=== PATIENT | female | born 1975 | race Caucasian/White ===

== ENCOUNTER → 2018-02-15 17:56 | Outpatient (CLI) | payer BC, SELFPAY ==
[2018-02-15 17:57] LABS: Mucous, Urine 0 SEEN /hpf (<or=2+); Squamous Epithelial Cells - UA 0 SEEN /hpf (5-10)
[2018-02-15 18:12] LABS: Color, Urine Yellow (Yellow); Glucose, Dipstick Normal (Normal); Ketone-Dipstick Negative (Negative); Leukocyte Esterase-Dipstick 500 /ul (Negative); Nitrite-Dipstick Positive (Negative); Occult Blood-Urine 50 /ul (Negative); Protein-Dipstick 15 mg/dl (Negative); Specific Gravity, Urine 1.005 (1.002-1.030); Urine Clarity Sl. Cloudy (Clear); Urine Urobilinogen 4 mg/dl (Normal)
[2018-02-15 18:24] LABS: Urine Bilirubin Dipstick 3 mg/dL (Negative)
[2018-02-15 18:31] LABS: Bacteria 1+ /hpf (None Seen); Red Blood Cells-Urine 0-5 SEEN /hpf (0-5); White Blood Cells 5-10 SEEN /hpf (0-5)
== END ==
PROVIDERS: Family Provider Family Medicine; PCP Family Medicine; Visit Provider Physician Assistant Surgical
DX: R30.0 Dysuria (principal)
CPT/HCPCS: 81001; 87077; 87086; 87088; 87186

== ENCOUNTER → 2018-08-22 08:13 | Outpatient (CLI) | payer BC, SELFPAY ==
[2018-08-22 08:08] VITALS: BMI 25.9
--- NOTE | 2018-08-22 08:17 | RAD_ITS ---
STUDY: X-RAY - LEFT FOOT CLINICAL: Pain in the area of the fourth and fifth metatarsophalangeal joints, injury last night. TECHNIQUE: 3 view(s) of the foot. COMPARISON: None. FINDINGS: There is a small posterior calcaneal enthesophyte. There is a bipartite os peroneum. Normal visualized subtalar, talonavicular, calcaneocuboid, tarsal and tarsometatarsal articulations. Normal metatarsi. Normal metatarsophalangeal joint of the great toe. Normal tibial and fibular sesamoid bones. Normal interphalangeal joint of the great toe. Normal phalanges of the great toe. Normal second through fifth metatarsophalangeal joints. There is a nondisplaced fracture of the base of the fifth proximal phalanx. The soft tissue structures are unremarkable. RAD/Foot min 3 Views IMPRESSION: Fracture of the base of the fifth proximal phalanx. Electronically Signed: Len Pinedo MD at 9:00 EST Tel , Service support ,
--- OUTSIDE RECORDS SUMMARY | 2018-10-26 21:04 | XMS RPT_ITS ---
:1975 Author Organization OHIP Care Team Providers Name Role Phone Gautam Talamantes Attending Unavailable Malys, Ilana Referring Unavailable Gautam Talamantes Attending Unavailable Gautam Talamantes Referring Unavailable Malys, Ilana Primary Care Unavailable Rashawn Rogers Attending Unavailable Malys, Ilana Referring Unavailable Malys, Ilana Primary Care Unavailable Rashawn Rogers Attending Unavailable Malys, Ilana Primary Care Unavailable Rashawn Rogers Referring Unavailable Chirag Ibarra Attending Unavailable Malys, Ilana Referring Unavailable PROBLEMS PROBLEMS DATE TYPE CONDITION / CODE ATTENDING STATUS SOURCE 08/22/2018 Unknown S99.922A - Gautam Talamantes Active [place] Unspecified Community injury of left Hospital foot, initial Repository encounter / S99.922A(ICD-10) 02/16/2018 Unknown R30.0 - Dysuria / Rashawn Rogers Active [place] R30.0(ICD-10) [facility] Repository 02/15/2018 Unknown N39.0 - Urinary KenRashawn Active [place] tract infection, Community site not Hospital specified / Repository N39.0(ICD-10) PROCEDURES PROCEDURES No Procedure Records FoundRESULTS RESULTS ORTHOPEDIC VISIT Observed: 08/28/2018 Status: F Source: [place] REPORT 12:10 PM [facility] REPOSITORY [facility] [address] [place] [address] [address] [place] [address] OFFICE VISIT Date of Service: 08/28/18 MR#: [id number] Acct: [id number] Name: DOROTHY BATES Rep #: [id number] : 1975 Provider: DEVAN Ibarra Age/Sex: 43/F [place] [facility] [place]: [place] Intake Vital Signs08/28/18 Body Mass Index (BMI) 25.9 Intake Visit Reasons: LEFT FOOT Is patient in pain?: Yes Pain scale (1-10): 1 Allergies No Known Allergies Allergy (Unverified 08/22/18 08:09) Medications NK 08/22/18 [History Confirmed 08/22/18] PFSH Social History Smoking Status: Never smoker alcohol intake: never HPI LEFT FOOT: Details: DOROTHY BATES is a 43 year old F here today for [facility]u from [facility], she was in the garage at home when she tripped over [place] and her foot went into the pile of wood. She presents in a hard soled shoe with discoloration at the fifth mtp, mild swelling but she does not have much pain. Denies numbness, tingling or other associated symptoms. She was icing but no longer needs it. Ortho Exam Left Ankle Skin: Yes Ecchymosis (Base of the fifth toe); no Soft Tissue Swelling or Erythema Exam: Yes Ecchymosis (Base of the fifth toe); no Soft tissue swelling, Erythema or TTP Lateral Malleolus Compartments: soft ROM: No pain with ROM ANKLE: Today in the office patient has no abnormalities on inspection of the ankle. She does have some minor swelling with some associated ecchymosis of the base of the fifth toe. Patient also has some minor associated tenderness on the dorsal surface of the fifth proximal phalanx. Patient does have intact flexion and extension of the toe joints. Patient has no tenderness on palpation of the base of the fifth metatarsal. She has no tenderness in the ankle. She has full range of motion of the ankle without pains or discomfort. Patient has normal sensation throughout the extremity. Assessment AND Plan Problems 1. Fracture of proximal phalanx of toe of left foot S92.912A Plan At this time we did discuss patient's x-ray results as well as the anatomy of the foot. X-rays show that she has a small nondisplaced fracture at the base of the proximal phalanx. In the office she has some minor swelling and ecchymosis with minor tenderness on palpation. Movements are intact of the toe joints. At this time patient is in a postop shoe and should continue with the postop shoe for the next 3 weeks. I would see that in 1-2 weeks she can take the shoe off at night and just continue to work with range of motion of the toes as well as she has no tenderness. I like to recheck her in 3 weeks which will be 4 weeks from her injury and will get x-rays at that time. Patient can return to the office sooner if she has any new injuries, increased swelling, increasing pain or any other signs or symptoms. Patient can continue to ice and take anti-inflammatories as needed for pain however she states she is really not had much pain and has not needed to take anything. All of patient's questions were answered at this time. This note was generated with [employer] software. It may contain incorrect words, spelling, and punctuation that were not noted in checking the note before signing. This note was generated with [employer] software. It may contain incorrect words, spelling, and punctuation that were not noted in checking the note before signing. Coding Level of Care Code Off vis,est,level 3 Diagnoses Fracture of proximal phalanx of toe of left foot S92.912A 08/28/18 1210 <Electronically signed by Chirag HARTMAN> Date Chirag HARTMAN Cosigner Signature: Date (if applicable) CC: URGENT CARE VISIT Observed: 08/22/2018 Status: F Source: DAVID REPORT 10:29 AM [facility] REPOSITORY [facility] [address] [place] [address] [address] [place] [address] OFFICE VISIT Date of Service: 08/22/18 MR#: [id number] Acct: [id number] Name: DOROTHY BATES Rep #: [id number] : 1975 Provider: Gautam HARTMAN Age/Sex: 43/F Location[place] [facility] Status: Signed Intake Vital Signs08/22/18 Height 5 ft 5 in 08/22/18 Weight: 156 lb 08/22/18 Body Mass Index (BMI) 25.9 08/22/18 Blood Pressure 124/72 H 08/22/18 Respiratory Rate 14 Intake Visit Reasons: LEFT FOOT PAIN Chief Complaint: Left foot injury Pony Rougher Required: No Accompanied by: self Is patient in pain?: Yes Allergies No Known Allergies Allergy (Unverified 08/22/18 08:09) Medications NK 08/22/18 [History Confirmed 08/22/18] PFSH Social History Smoking Status: Never smoker alcohol intake: never HPI HPI Chief Complaint: Left foot injury Details: DOROTHY BATES, is a 43 F who presents to the office today for initial evaluation left foot injury occurring last evening. Patient states while at home accidentally kicking a kitchen cabinet while reaching for some food. Pain agravated to touch and with weight bearing, alleviated w/ rest. No other c/o at this time. ROS Const Constitutional: Positive for other (ROS negative x10 other than as noted above) Exam Const General: cooperative, healthy appearing, no acute distress, uncomfortable Nutritional Appearance: average body habitus Orientation: alert, awake, oriented x3 Musc Musculoskeletal: No joint tenderness, joint redness, joint warmth or decreased ROM Skin General: no rashes or lesions noted Neuro General: alert, awake, oriented x3, gait normal Cognition: normal cognition Speech: speech normal Gait: normal gait Motor: muscle tone normal throughout Sensory Exam: no sensory deficits noted Extrem General: normal to inspection, normal capillary refill, no joint enlargement, normal exam except as noted (L 5th MTP point tenderness; XRAY = 5th MTP fracture) Psych Appearance: grossly normal Mental Status: mental status grossly normal Mood: congruent mood Affect: normal affect Speech and Movement: speech and movement normal Attitude: cooperative Thought Process: normal Thought Content: normal Judgment: judgment good Assessment AND Plan Problems 1. Nondisplaced fracture of fifth left metatarsal bone S92.355A Plan Post-op show as dispensed/ instructed today. Radiologist interpretation of radiographs given to patient over the phone after her discharge from the [facility] clinic today; patient stated acknowledging understanding significance of findings. Rest, ice, Advil/ Tylenol as instructed today. F/u w/ ortho or podiatry 1st available. Patient states acknowledging understanding all the above. Orders Orders: Coding Level of Care Code Off vis,new,level 4 Diagnoses Nondisplaced fracture of fifth left metatarsal bone S92.355A 08/22/18 1029 <Electronically signed by Gautam HARTMAN> Date Gautam HARTMAN Cosigner Signature: Date (if applicable) CC: FOOT MIN 3 VIEWS Observed: 08/22/2018 Status: F Source: ALL[place] 8:17 AM [facility] REPOSITORY [facility] Imaging Services [address] [place] [address] Foot min 3 Views MR#: [id number] Acct: [id number] Name: DOROTHY BATES Rep #: [id number] : 1975 F 43 From: Len Pinedo MD PCP: Ilana Nguyễn DO Status: REG CLI Study: Foot min 3 Views Date of Exam: 08/22/18 Exam# [id number] Ordering Dr: Gautam Talamantes STUDY: X-RAY - LEFT FOOT CLINICAL: Pain in the area of the fourth and fifth metatarsophalangeal joints, injury last night. TECHNIQUE: 3 view(s) of the foot. COMPARISON: None. FINDINGS: There is a small posterior calcaneal enthesophyte. There is a bipartite os peroneum. Normal visualized subtalar, talonavicular, calcaneocuboid, tarsal and tarsometatarsal articulations. Normal metatarsi. Normal metatarsophalangeal joint of the great toe. Normal tibial and fibular sesamoid bones. Normal interphalangeal joint of the great toe. Normal phalanges of the great toe. Normal second through fifth metatarsophalangeal joints. There is a nondisplaced fracture of the base of the fifth proximal phalanx. The soft tissue structures are unremarkable. RAD/Foot min 3 Views IMPRESSION: Fracture of the base of the fifth proximal phalanx. Electronically Signed: Len Pinedo MD at 9:00 EST Tel , Service support , CC: Ilana Nguyễn DO; Gautam HARTMAN Check Totaler: Signed URGENT CARE VISIT Observed: 02/15/2018 Status: F Source: [place] REPORT 12:38 PM [facility] [place] [place] [address] OFFICE VISIT Date of Service: 02/15/18 MR#: [id number] Acct: [id number] Name: DOROTHY BATES Rep #: [id number] : 1975 Provider: Rashawn HARTMAN Age/Sex: 42/F Location: [facility] Status: Signed Intake Vital Signs02/15/18 Height 5 ft 5 in Intake Visit Reasons: Urinary tract infection Medications nitrofurantoin monohydrate/macrocrystals 100 mg capsule 1 cap PO Q12H 7 Days #14 cap 02/15/18 [Rx Confirmed 02/15/18] HPI HPI Details: DOROTHY BATES, is a 42 F who presents to the office today for concern for UTI. Patient states that she has had pelvic pressure for the past 4-5 days then over the past 24 hours has noticed dysuria, increased urinary frequency, hematuria and urgency. Patient states that she has taken Pyridium which did help with the dysuria. Patient denies any current pelvic, abdominal or back pain. She has had no fever, chills, sweats. No nausea, vomiting, diarrhea. No other associated symptoms or alleviating/aggravating factors. ROS Const Constitutional: No body ache, chills or fever(s) Resp Respiratory: No shortness of breath Cardio Cardiology: No lightheadedness, palpitations or irregular heart rhythm Gastro GI: No abdominal pain Genitourinary-Female: Positive for burning urination, painful urination, urinary frequency and blood in urine; no pelvic pain or painful intercourse Neuro Neurology: No confusion or behavioral changes Psych Psychiatric: No confusion, No behavioral changes Exam Const General: cooperative, healthy appearing Resp Effort AND Inspection: normal respiratory effort Auscultation: Bilateral: Clear to Auscultation Cardio Rate: regular rate Rhythm: regular rhythm GI Auscultation: normal bowel sounds General: No CVA tenderness Psych Appearance: grossly normal Mental Status: mental status grossly normal Assessment AND Plan 1. Acute cystitis with hematuria N30.01 Status Acute Plan Macrobid as prescribed today. Encouraged to get plenty of rest, drink lots of clear liquids, and use Tylenol or Ibuprofen (unless contraindicated) for fever and comfort. Patient also educated on other symptomatic management techniques. To be seen in 7-10 days if no improvement; sooner if worsening of symptoms. Patient advised of potential red flags and when appropriate report to the ED. Patient verbalized understanding of all the above. This note was generated with [employer] dictation software. It may contain incorrect words, spelling, and punctuation that were not noted in checking the note before signing. Plan Detail Other Orders Orders: Other Medications New: nitrofurantoin monohyd/m-cryst 100 mg administer with a meal1 cap PO Q12H 7 days N39.0 /food; swallow whole; do not open, crush, dissolve , or chew Coding Level of Care Code Off vis,new,level 3 Diagnoses Acute cystitis with hematuria N30.01 Urinary tract infection type: acute cystitis Hematuria presence: with hematuria 02/15/18 1238 <Electronically signed by Rashawn HARTMAN> Date Rashawn HARTMAN Cosigner Signature: Date (if applicable) CC: URINALYSIS, COMPLETE Collected: 02/15/2018 Status: F Source: DAVID 11:30 AM [facility] REPOSITORY Order Comment: How was Urine Obtained? CLEAN CATCH TYPE CODE TESTS RESULT OUT OF RANGE REFERENCE UNITS LAB L400.3000 Yellow COLOR Normal Yellow LAB L400.3050 Clear Normal CLARITY Sl. Cloudy LAB L400.3200 Normal mg/dl Normal GLUCOSE, UR Normal LAB L400.3300 Negative mg/dL High BILIRUBIN URINE 3 Result Comment: COLOR OF URINE MAY AFFECT DIPSTICK RESULTS. LAB L400.3400 Negative mg/dl Normal KETONE UR Negative LAB L400.3465 1.002-1.030 Normal SP.GR. DIPSTX 1.005 LAB L400.3550 5.0 - 8.0 pH Normal UR 7.0 LAB L400.3600 Negative mg/dl High PROT DIPSTX 15 LAB L400.3700 Normal mg/dl High UROBILI 4 LAB L400.3750 Negative High NITRITE UR Positive LAB L400.3780 Negative /ul High OCCULT 50 BLOOD-UR LAB L400.3800 Negative /ul High LEUK ESTERASE 500 LAB L400.4050 0-5 /hpf Normal WBC 5-10 SEEN LAB L400.4100 0-5 /hpf Normal RBC-UA 0-5 SEEN LAB L400.4150 5-10 /hpf Normal SQUAM EPI 0 SEEN LAB L400.4300 None Seen /hpf Normal BACTERIA 1+ LAB L400.4350 <or=2+ /hpf Normal MUCUS, URINE 0 SEEN Performed By: #### L400.0001 #### [facility] [address] [place], [address] Observed: 02/15/2018 Status: F Source: DAVID CULTURE, URINE 11:30 AM [facility] REPOSITORY Urine Culture ORGANISM 1: Presumptive E. coli [place] Count 11,000-25,000 Presumptive E. coli: REACTION Amoxacillin/Clavulanic Acid $ 4 S Ampicillin $ 16 R Ampicillin/Sulbactam $ 4 S Cefazolin $ <=4 S Cefepime $ <=1 S Ceftriaxone $ <=1 S Ciprofloxacin $ <=0.25 S ESBL - Ertapenim $$$ <=0.5 S Gentamicin $ <=1 S Imipenem *NF <=0.25 S Levofloxacin $ <=0.12 S Nitrofurantoin $ <=16 S Piperacillin/Tazobactam $$ <=4 S Tobramycin $ <=1 S Trimethoprim/Sulfametho $ <=20 S (NF) indicates non-formulary drug at [facility]. Approval by Infectious Disease Specialist required before non-formulary drugs may be ordered and/or dispensed. Performed By: #### M100.0650 #### [facility] [place], [address] ALLERGIES ALLERGIES DATE TYPE / CODE NAME / CODE REACTION SEVERITY SOURCE 08/22/2018 Drug No Known Unknown [facility] Allergy/4160 Allergies/F00 Hospital 52003(SNOMED 5147092(RXNOR Repository CT) M) ENCOUNTERS ENCOUNTERS ADMIT/DISCHARGE ACCOUNT ADMITTING ENCOUNTER LOCATION SOURCE NUMBER CLASS 08/28/2018/ [id number] Ambulatory BMSBuilding:B David 9 0 MS.SMO [facility] Repository 08/22/2018 [id number] Ambulatory [place] 2 [facility] ing:HPRAD Repository 08/22/2018/ [id number] Ambulatory BMSBuilding:B [place] 9 4 [place].NOW [facility] Repository 02/15/2018 [id number] Ambulatory [place] 7 [facility] ing:LABSPEC Repository 02/15/2018/ [id number] Ambulatory BMSBuilding:B [place] 8 5 MS.[facility] Repository PAYERS PAYERS ENCOUNTER GUARANTOR PAYER SUBSCRIBER SOURCE 08/28/2018 DOROTHY MCMAHON3 Chapito Hernandez [facility] Stewart[place]: [place] Number: [id number] [address]Usy: (330) [id number] Repository [phone] () Date:7743-00-75[address] [place] [address]DE: 08/28/2018 Secondary NOT GIVENUNK [place] Insurance:SELF PAY [facility] Number: Effective Repository Date:2018-08-27 08/22/2018 DOROTHY BATES543 Primary Anahi D [place] Insurance:ANTHEMPolic StewartDOB: [facility] [place] Number: [id number] [id number]: [phone]) [id number] Repository [phone] () Date:2529-72-25QS [address] [place] [address] [place] [address]HZ: 08/22/2018 Secondary NOT GIVENUNK [place] Insurance:SELF PAY [facility] Number: Effective Repository Date:2018-08-22 08/22/2018 DOROTHY MCMAHON3 Primary Anahi D David [place] Insurance:ANTHEMPolic StewartDOB: [facility] [place] Number: [id number] [address]Zaq: [phone]) [id number] Repository [phone] () Date:8528-94-99HO [address] [place] [address] [place] [address]LV: 08/22/2018 Secondary NOT GIVENUNK David Insurance:SELF PAY [facility] Number: Effective Repository Date:2018-08-22 02/15/2018 DOROTHY SALDIVAR Primary Anahi D David [place] Insurance:ANTHEMPolic StewartDOB: [facility] [place] Number: [id number] [address]Rks: (330) [id number] Repository [phone] () Date:2087-00-24MZ [address] [address]YU: 02/15/2018 Secondary NOT GIVENUNK David Insurance:SELF PAY [facility] Number: Effective Repository Date:2018-02-15 02/15/2018 DOROTHY SALDIVAR Primary Anahi Hernandez [facility] Insurance:ANTHEMPolic StewartDOB: [place] Number: [id number] [id number]: [phone]) [id number] Repository [phone] () Date:9621-57-10TQ [address], [place] [address]NR: 02/15/2018 Secondary NOT GIVENROSAS Hernandez Insurance:SELF PAY [facility] Number: Effective Repository Date:2018-02-15
== END ==
PROVIDERS: Family Provider Family Medicine; PCP Family Medicine; Referring Provider Physician Assistant; Visit Provider Physician Assistant
DX: S99.922A Unspecified injury of left foot, initial encounter (principal)
CPT/HCPCS: 73630

== ENCOUNTER → 2020-09-13 11:15 | Outpatient (CLI) | payer BC, SELFPAY ==
[2020-07-27 09:52] VITALS: BMI 28.3
[2020-09-13 12:33] LABS: Absolute Lymphocyte Count 1.99 X10^3/uL (0.83-4.51); Absolute Neutrophil Count 5.2 X10^3/uL (2.0-7.7); Basophil# 0.04 X10^3/uL; Basophil% 0.5 % (0-1); Eosinophils% 2.5 % (0-5); Hematocrit 45.8 % (37-47); Hemoglobin 14.7 g/dL (12.0-15.0); Lymphocyte # 1.99 X10^3/ul (4.0); Lymphocyte % 24.7 % (19-41); Mean Corp Hgb Conc 32.1 g/dL (32-36); Mean Corpuscular Hgb 29.9 pg (27.0-32.0); Mean Corpuscular Volume 93.3 fL (81-99); Mean Platelet Vol. 9.5 fl (6.2-12.0); Monocyte# 0.59 X10^3/uL; Monocyte% 7.3 % (0-10); NRBC Flagged by Analyzer 0 % (0-5); Neutrophil # 5.22 X10^3/uL (2.7-7.7); Neutrophil % 64.8 % (47-70); Platelet Count 275 K/mm3 (150-450); RBC Distribution Width CV 12.8 % (11.6-14.6); RBC Distribution Width SD 43.8 fl (35.1-43.9); Red Blood Count 4.91 M/mm3 (4.2-5.4); White Blood Count 8.1 K/mm3 (4.4-11.0)
[2020-09-13 13:11] LABS: ALB/GLOB Ratio 1.2 RATIO (0.9-2.4); AST(SGOT) 17 U/L (15-37); Alanine Aminotransfer ALT/SGPT 18 U/L (13-56); Albumin, Serum 4.1 g/dL (3.2-5.0); Alkaline Phosphatase 58 U/L (45-117); Anion Gap 3 (5-15); BUN 15 mg/dL (7-18); BUN/Creat Ratio 16.4 RATIO (10-20); Calcium,Total 9.5 mg/dL (8.5-10.1); Chloride 107 mmol/L (98-107); Creatinine, Serum 0.92 mg/dL (0.55-1.02); EST Glomerular Filtration Rate 70 mL/min (>60); Est Glom Filt Rate - Afr Amer 85 mL/min (>60); Free T3 2.5 pg/mL (2.18-3.98); Globulin 3.4 g/dL (2.2-4.2); Glucose 82 mg/dL (74-106); Magnesium 2.2 mg/dL (1.6-2.6); Potassium 3.9 mmol/L (3.5-5.1); Protein, Total 7.5 g/dL (6.4-8.2); Sodium Level 139 mmol/L (136-145); T4 Free Direct 1.01 ng/dL (0.76-1.46); Thyroid Stim Hormone (TSH) 1.74 uIU/mL (0.358-3.74)
== END ==
PROVIDERS: PCP Family Medicine; Visit Provider Family Medicine
DX: R00.2 Palpitations (principal); R53.83 Other fatigue; Z51.81 Encounter for therapeutic drug level monitoring
CPT/HCPCS: 36415; 80053; 83735; 84439; 84443; 84481; 85025

== ENCOUNTER → 2020-09-27 14:53 | Outpatient (CLI) | payer BC, SELFPAY ==
[2020-07-27 09:52] VITALS: BMI 28.3
--- NOTE | 2020-09-27 14:59 | ECHOD_ITS ---
Reason For Study: HEART MURMUR Procedure This was a 2D Doppler, Color Flow transthoracic echocardiogram. Exam performed in department. Left Ventricle Normal LV size. Left ventricular systolic function is normal. The estimated ejection fraction is 65 %. Normal diastology for age. No regional wall motion abnormalities noted. Right Ventricle Normal RV size. Normal systolic function. Atria Normal left atrium. Normal right atrium. Mitral Valve Normal mitral valve. Tricuspid Valve Normal tricuspid valve. Mild (1+) tricuspid valve insufficiency. Pulmonary artery systolic pressure is 30 mmHg. Aortic Valve Normal aortic valve. Trisinus/trileaflet aortic valve. Pulmonic Valve Normal pulmonic valve. Great Vessels Normal aortic root. The pulmonary artery is normal size. Normal inferior vena cava. Pericardium/Pleural No pericardial effusion. MMode/2D Measurements & Calculations LVIDd: 4.3 cm IVSd: 0.77 cm Ao root diam: 2.5 cm LVIDs: 2.9 cm LVPWd: 0.77 cm RVDd: 3.2 cm FS: 31.9 % LAV(MOD-bp): 31.4 ml LVAd ap4: 21.0 cm2 SV(MOD-sp4): 28.2 ml LAV(MOD-bp) Indexed: 17.3 ml/m2 EDV(MOD-sp4): 51.8 ml LAV(MOD-sp2): 30.2 ml EDV(sp4-el): 53.2 ml LAV(MOD-sp4): 31.2 ml LVAs ap4: 12.4 cm2 ESV(MOD-sp4): 23.6 ml ESV(sp4-el): 23.9 ml EF(MOD-sp4): 54.4 % EF(sp4-el): 55.0 % SV(sp4-el): 29.3 ml LA A4 area: 13.3 cm2 LA dimension(2D): 3.4 cm RA A4 area: 11.7 cm2 Time Measurements MV dec time: 0.16 sec Doppler Measurements & Calculations MV E max benny: 100.9 cm/sec Lat Peak E' Benny: 17.2 cm/sec Med Peak E' Benyn: 13.7 cm/sec MV A max benny: 65.9 cm/sec E/E' lat: 5.9 E/E' med: 7.4 MV E/A: 1.5 Ao V2 max: 121.6 cm/sec LV V1 max: 100.7 cm/sec PA V2 max: 92.2 cm/sec Ao max P.9 mmHg LV V1 max P.1 mmHg TR max benny: 251.5 cm/sec TR max P.3 mmHg Interpretation Summary Normal LV size. Left ventricular systolic function is normal. The estimated ejection fraction is 65 %. Pulmonary artery systolic pressure is 30 mmHg. Structurally normal valves. Ordering Physician: Ilana Nguyễn Referring Physician: Ilana Nguyễn Performed By: Vaishnavi Vera RDCS
== END ==
PROVIDERS: PCP Family Medicine; Referring Provider Family Medicine; Visit Provider Family Medicine
DX: I07.1 Rheumatic tricuspid insufficiency (principal); R00.2 Palpitations; R01.1 Cardiac murmur, unspecified
CPT/HCPCS: 93306

== ENCOUNTER → 2021-04-06 | Outpatient (CLI) | payer BC, SELFPAY | END | disposition home or self-care (01) | LOC: LABSPEC 15:04 | PROVIDERS: PCP Family Medicine; Visit Provider Family Medicine | DX: Z20.828 Contact with and (suspected) exposure to other viral communicable diseases (principal) | CPT/HCPCS: 87635; U0005; U0003 ==

== ENCOUNTER → 2022-04-20 | Outpatient (CLI) | payer BC, SELFPAY ==
[2022-04-20 17:45] LABS: Erythrocyte Sedimentation Rate 4 mm/hr (0-30)
[2022-04-20 17:47] LABS: Absolute Lymphocyte Count 1.97 X10^3/uL (0.83-4.51); Absolute Neutrophil Count 4.7 X10^3/uL (2.0-7.7); Basophil# 0.05 X10^3/uL; Basophil% 0.6 % (0-1); Eosinophil# 0.39 X10^3/uL; Hematocrit 43.4 % (37-47); Lymphocyte # 1.97 X10^3/ul (0.83-4.51); Lymphocyte % 25.1 % (19-41); Mean Corp Hgb Conc 32.3 g/dL (32-36); Mean Corpuscular Hgb 30.1 pg (27.0-32.0); Mean Corpuscular Volume 93.3 fL (81-99); Mean Platelet Vol. 9.2 fl (6.2-12.0); Monocyte# 0.72 X10^3/uL; Monocyte% 9.2 % (0-10); NRBC Flagged by Analyzer 0 % (0-5); Neutrophil # 4.71 X10^3/uL (2.7-7.7); Neutrophil % 59.8 % (47-70); Platelet Count 203 K/mm3 (150-450); RBC Distribution Width CV 12.9 % (11.6-14.6); RBC Distribution Width SD 44.4 fl (35.1-43.9); Red Blood Count 4.65 M/mm3 (4.2-5.4); White Blood Count 7.9 K/mm3 (4.4-11.0)
[2022-04-20 18:03] LABS: Vitamin B12 613 pg/mL (211-911); Vitamin D,25 Hydroxy 19.3 ng/mL
[2022-04-20 18:26] LABS: CRP < 2.90 mg/L (0.0-3.0); Free T3 2.7 pg/mL (2.18-3.98); T4 Free Direct 0.99 ng/dL (0.76-1.46); Thyroid Stim Hormone (TSH) 2.74 uIU/mL (0.358-3.74)
[2022-04-24 22:06] LABS: Thyroid Peroxidase AB 13 IU/mL (0-34)
[2022-04-25 15:14] LABS: Thyroglobulin Antibody < 1.0 IU/mL (0.0-0.9)
== END | disposition home or self-care (01) ==
LOC: MTLAB 16:01
PROVIDERS: PCP Family Medicine; Referring Provider Family Medicine; Visit Provider Family Medicine
DX: E03.9 Hypothyroidism, unspecified (principal); E55.9 Vitamin D deficiency, unspecified; D51.8 Other vitamin B12 deficiency anemias; M25.50 Pain in unspecified joint; R53.83 Other fatigue
CPT/HCPCS: 36415; 82306; 82607; 84439; 84443; 84481; 85025; 85652; 86140; 86376; 86800

== ENCOUNTER → 2023-09-17 | Outpatient (CLI) | payer BC, SELFPAY ==
--- OUTSIDE RECORDS SUMMARY | 2023-09-17 12:14 | XMS RPT_ITS | CCD ---
Author Name Unknown Address [address] [place] [address] Organization [facility] Clinical Note 02-25-2021 Note Date & Type Note Facility 02-25-2021 Note Patient Outreach (IN TMMN) JANADOROTHY Gifford ([id number]) 1975 F Date Time Provider Department 02/25/21 MARCY ESTES During your visit today, we recorded the following information about you: Allergies As of Date: 02/25/2021 Noted Allergy Reaction AUGMENTIN (AMOXICILLIN-POT CLAVUL*09/01/2005 Comments: hives and facial swelling Date Reviewed: 10/29/2015 Reviewed by: Jacob Calero LPN - Fully Assessed Visit Diagnosis:Encounter for screening mammogram for breast cancer [Z12.31] Order(s):[facility] SCREENING [[id number]] Order #: [id number] FUTURE Prescriptions as of 02/28/2021 - atenolol (TENORMIN) 25 mg tablet Take 1 tablet by mouth once daily as needed. - terbinafine HCl (LAMISIL) 250 mg tablet Take 1 tablet by mouth once daily. Problem List As Of Date: 02/25/2021 (None) Encounter Status:Closed by MAKI VELAZQUEZ on 02/28/21 [facility] Summary Purpose Family History No Family History Records Found Advance Directives No Advanced Directives Records Found Additional Source Comments INFORMATION SOURCE (unrecogn ized section and content) FOR RECORDS PERTAINING TO PATIENTS WHO ARE OR HAVE BEEN ENROLLED IN A CHEMICAL DEPENDENCY/SUBSTANCEABUSE PROGRAM, SOME INFORMATION MAY BE OMITTED. This clinical summary was aggregated from multiple sources. Caution should be exercised in using it in the provision of clinical care. This summary normalizes information from multiple sources, and as a consequence, information in this document may materially change the coding, format and clinical context of patient data. In addition, data may be omitted in some cases. CLINICAL DECISIONS SHOULD BE BASED ON THE PRIMARY CLINICAL RECORDS. [facility]. provides no warranty or guarantee of the accuracy or completeness of information in this document.
[2023-09-17 15:30] LABS: Absolute Neutrophil Count 6.3 X10^3/uL (2.0-7.7); Basophil# 0.04 X10^3/uL; Basophil% 0.4 % (0-1); Eosinophils% 2.2 % (0-5); Hematocrit 44.9 % (37-47); Hemoglobin 14.1 g/dL (12.0-15.0); Lymphocyte % 21.6 % (19-41); Mean Corp Hgb Conc 31.4 g/dL (32-36); Mean Corpuscular Hgb 29.7 pg (27.0-32.0); Mean Corpuscular Volume 94.5 fL (81-99); Mean Platelet Vol. 9.7 fl (6.2-12.0); Monocyte# 0.66 X10^3/uL; Monocyte% 7.1 % (0-10); NRBC Flagged by Analyzer 0 % (0-5); Neutrophil # 6.31 X10^3/uL (2.7-7.7); Neutrophil % 68.4 % (47-70); Platelet Count 295 K/mm3 (150-450); RBC Distribution Width SD 45.2 fl (35.1-43.9); Red Blood Count 4.75 M/mm3 (4.2-5.4); White Blood Count 9.2 K/mm3 (4.4-11.0)
[2023-09-17 15:41] LABS: Color, Urine Yellow (Yellow); Glucose, Dipstick Normal (Normal); Ketone-Dipstick Negative (Negative); Leukocyte Esterase-Dipstick Negative /ul (Negative); Nitrite-Dipstick Negative (Negative); Occult Blood-Urine Negative /ul (Negative); Protein-Dipstick Negative (Negative); Urine Bilirubin Dipstick Negative (Negative); Urine Clarity Clear (Clear); Urine Urobilinogen Normal (Normal)
[2023-09-17 15:59] LABS: Erythrocyte Sedimentation Rate 11 mm/hr (0-30)
[2023-09-17 16:03] LABS: ALB/GLOB Ratio 1.1 RATIO (0.9-2.4); AST(SGOT) 17 U/L (15-37); Alanine Aminotransfer ALT/SGPT 19 U/L (13-56); Albumin, Serum 3.9 g/dL (3.2-5.0); Alkaline Phosphatase 61 U/L (45-117); Anion Gap 4 (5-15); BUN 11 mg/dL (7-18); BUN/Creat Ratio 12.3 RATIO (10-20); CRP < 2.90 mg/L (0.0-3.0); Calcium,Total 9.8 mg/dL (8.5-10.1); Chloride 106 mmol/L (98-107); Creatinine, Serum 0.89 mg/dL (0.55-1.02); EST Glomerular Filtration Rate 72 mL/min (>60); Est Glom Filt Rate - Afr Amer 87 mL/min (>60); Free T3 2.6 pg/mL (2.18-3.98); Globulin 3.5 g/dL (2.2-4.2); Glucose 86 mg/dL (74-106); Iron 75 ug/dL (50-170); Protein, Total 7.4 g/dL (6.4-8.2); Sodium Level 139 mmol/L (136-145); T4 Free Direct 0.95 ng/dL (0.76-1.46); Thyroid Stim Hormone (TSH) 2.54 uIU/mL (0.358-3.74)
== END | disposition home or self-care (01) ==
LOC: BFHLAB 11:54
PROVIDERS: PCP Family Medicine; Visit Provider Family Medicine
DX: E03.9 Hypothyroidism, unspecified (principal); M25.50 Pain in unspecified joint; M79.10 Myalgia, unspecified site; R53.83 Other fatigue; Z51.81 Encounter for therapeutic drug level monitoring; R80.9 Proteinuria, unspecified
CPT/HCPCS: 36415; 80050; 80053; 81002; 83540; 84439; 84443; 84481; 85025; 85652; 86140

== ENCOUNTER → 2023-10-01 | Outpatient (CLI) | payer BC, SELFPAY ==
--- NOTE | 2023-10-01 08:31 | BI_ITS ---
MAMMOGRAPHY - BILATERAL SCREENING REASON FOR EXAM: Female, 48 years old. Routine annual screening examination. PERTINENT HISTORY: Non-contributory. TECHNIQUE: Digital bilateral breast marty (3D mammographic acquisition) in the CC and MLO projections. 2-D mediolateral oblique (MLO) and craniocaudad (CC) views of both breasts were obtained. CAD: Full Field Digital Mammography with Computer Added Detection was performed. COMPARISON: Comparison is made with prior study dated February 07, 2017. FINDINGS: Breast Composition: The breasts are extremely dense, which lowers the sensitivity of mammography. There are no dominant masses or suspicious calcifications. No other significant abnormalities are identified. There has been no significant change since the prior study. BI/SCRN MAMM (CAD)W/MARTY BILAT IMPRESSION: Stable bilateral screening mammogram. Yearly follow-up mammogram recommended. (A) ASSESSMENT CATEGORY: BIRADS Category 1: Negative. A letter regarding these results will be sent to the patient by the facility within 30 days. Approximately 10% of breast cancers are not detected by mammography. A normal mammogram should not delay biopsy of a clinically suspicious abnormality. [id number] Electronically Signed: Alexandro Poe MD at 10:51 EST ,
--- OUTSIDE RECORDS SUMMARY | 2023-10-01 08:49 | XMS RPT_ITS | CCD ---
Author Name Unknown Address [address] [place] [address] Organization [facility] Clinical Note 02-25-2021 Note Date & Type Note Facility 02-25-2021 Note Patient Outreach (IN [facility]) JANADOROTHY Gifford ([id number]) 1975 F Date Time Provider Department 02/25/21 MARCY ESTES During your visit today, we recorded the following information about you: Allergies As of Date: 02/25/2021 Noted Allergy Reaction AUGMENTIN (AMOXICILLIN-POT CLAVUL*09/01/2005 Comments: hives and facial swelling Date Reviewed: 10/29/2015 Reviewed by: Jacob Calero LPN - Fully Assessed Visit Diagnosis:Encounter for screening mammogram for breast cancer [Z12.31] Order(s):[facility] SCREENING [[id number]] Order #: [id number] FUTURE Prescriptions as of 02/28/2021 - atenolol (TENORMIN) 25 mg tablet Take 1 tablet by mouth once daily as needed. - terbinafine HCl (LAMISIL) 250 mg tablet Take 1 tablet by mouth once daily. Problem List As Of Date: 02/25/2021 (None) Encounter Status:Closed by MAKI VELAZQUEZ on 02/28/21 [facility] Summary Purpose Family History No Family History [...] BE BASED ON THE PRIMARY CLINICAL RECORDS. [facility] [employer] [facility]. provides no warranty or guarantee of the accuracy or completeness of information in this document.
== END | disposition home or self-care (01) ==
LOC: OPBI 08:30
PROVIDERS: PCP Family Medicine; Referring Provider Family Medicine; Visit Provider Family Medicine
DX: Z12.31 Encounter for screening mammogram for malignant neoplasm of breast (principal)
CPT/HCPCS: 77063; 77067

== ENCOUNTER → 2024-07-14 | Outpatient (CLI) | payer BC, SELFPAY ==
[2024-07-14 18:02] LABS: Estradiol 18.6 pg/mL
[2024-07-14 19:03] LABS: Vitamin D,25 Hydroxy 15.9 ng/mL
[2024-07-16 04:07] LABS: PROGESTERONE 0.8 ng/mL (.)
[2024-07-21 09:22] LABS: DHEA Sulfate 52.2 ug/dL (41.2-243.7); Testosterone, % Free 2.29 % (0.50-2.80); Testosterone, Free 0.07 ng/dL (0.10-0.85); Testosterone, Total 3 ng/dL (4-50); Thyroglobulin Antibody 1.6 IU/mL (0.0-0.9); Thyroid Peroxidase AB < 9 IU/mL (0-34)
== END | disposition home or self-care (01) ==
LOC: BFHLAB 14:39
PROVIDERS: PCP Family Medicine; Visit Provider Family Medicine
DX: N95.1 Menopausal and female climacteric states (principal); N93.8 Other specified abnormal uterine and vaginal bleeding; R53.83 Other fatigue; M25.50 Pain in unspecified joint; E55.9 Vitamin D deficiency, unspecified
CPT/HCPCS: 36415; 82306; 82627; 82670; 84144; 84402; 84403; 84443; 86376; 86800; 82626

== ENCOUNTER → 2025-05-01 | Outpatient (CLI) | payer BC, SELFPAY ==
--- OUTSIDE RECORDS SUMMARY | 2025-05-01 08:46 | XMS RPT_ITS | CCD ---
Author Organization [facility] Care Team Providers Care Hotel Assistant General Manager Name Role Phone Gopi YEH, Dr. Preciado Primary Care Provider Dr. Ilana Nguyễn DO Referring Provider Zeina López Attending Provider Zeina Araujo Attending Unavailable Ilana Nguyễn Referring Unavailable Ilana Nguyễn Primary Care Unavailable Ilana Nguyễn Attending Unavailable Ilana Nguyễn Primary Care Unavailable Allergies Allergy Classification Reported Allergen(s) Allergy Type Date of Onset Reaction(s) Facility (4 sources) Penicillins Allergy to substance 07-27-2020 Unknown [facility] (1 source) Penicillins Drug allergy (disorder) 04-11-2025 [facility] Repository Medications Current Medications Medication Drug Class(es) Dates Sig (Normalized) Sig (Original) ciprofloxacin 500 mg oral tablet (1 source) Quinolone Antimicrobial Start: 04-11-2025 take 1 tablet by mouth twice daily Ciprofloxacin Hcl (Cipro) 500 mg tablet Active 500 mg PO TWICE A DAY 14 7 0 April 11, 2025 12:00am April 17, 2025 12:00am doxycycline monohydrate 100 mg oral capsule (1 source) Tetracycline-class Drug Start: 04-11-2025 take 1 capsule by mouth twice daily Doxycycline Monohydrate 100 mg capsule Active 100 mg PO TWICE A DAY 14 7 0 April 11, 2025 12:00am April 17, 2025 12:00am Completed/Discontinued Medications Medication Drug Class(es) Dates Sig (Normalized) Sig (Original) methylPREDNISolone 4 mg oral tablet (4 sources) Corticosteroid Start: 0 End: 0 take 1 tablet by mouth once Methylprednisolone (Medrol (Iker)) 4 mg tablets,dose pack Discontinued 4 mg PO per package directions 21 5 0 July 27, 2020 1:00am July 31, 2020 1:00am August 01, 2020 1:02am nitrofurantoin, macrocrystals 25 mg / nitrofurantoin, monohydrate 75 mg oral capsule (4 sources) Nitrofuran Antibacterial Start: 8 End: 8 take 1 capsule by mouth every twelve hours at mealtime Nitrofurantoin Monohyd/M-Cryst 100 mg capsule Discontinued 1 NMA PO Q12H 14 7 0 February 15, 2018 12:00am February 21, 2018 12:00am February 22, 2018 12:07am Urinary tract infection, site not specified administer with a meal/food; swallow whole; do not open, crush, dissolve , or chew polymyxin b [id number] unt/ml / trimethoprim 1 mg/ml ophthalmic solution (3 sources) Dihydrofolate Reductase Inhibitor Antibacterial, Polymyxin-class Antibacterial Start: 3 End: 3 Polymyxin B Sulf-Trimethoprim 10,000 unit- 1 mg/mL drops Discontinued 1 - 2 NMA OPHTHALMIC .Q3-6H 10 10 0 September 17, 2022 1:00am September 26, 2022 1:00am September 27, 2022 1:08am while awake; do not exceed 6 doses in 24 hours sulfamethoxazole 800 mg / trimethoprim 160 mg oral tablet (4 sources) Dihydrofolate Reductase Inhibitor Antibacterial, Sulfonamide Antimicrobial Start: 9 End: 9 Sulfamethoxazole-Trim ethoprim (Bactrim Ds) 800-160 mg tablet Discontinued 1 {tbl} PO Q12H 14 7 0 April 29, 2019 12:00am May 05, 2019 12:00am May 06, 2019 12:08am Problems Problem Classification Problem Date Documented Da te Episodic/Chronic Inflammation; infection of eye (except that caused by tuberculosis or sexually transmitteddisease) (3 sources) Conjunctivitis; Translations: [Unspecified conjunctivitis] 09-17-2022 Episodic Menopausal disorders (1 source) Menopausal and female climacteric states; Translations: [Menopausal and female climacteric states] Onset: 08-14-2024 Chronic Open wounds of extremities (5 sources) Cat bite - wound; Translations: [Open bite of other finger without damage to nail, initial encounter] 04-29-2019 Episodic Superficial injury; contusion (4 sources) Contusion of foot; Translations: [Contusion of unspecified foot, initial encounter] 07-27-2020 Episodic Urinary tract infections (4 sources) Urinary tract infectious disease; Translations: [Urinary tract infection, site not specified] 02-15-2018 Episodic Results Test Name Value Interpretation Reference Range Facility Urgent Care Visit Reporton 0 04-11-2025 Urgent Care Visit Report [facility] [address] , [address] [place] [address] OFFICE VISIT Date of Service: 04/11/25 MR#: [id number] Acct: [id number] Name: DOROTHY BATES Rep #: [id number] 1 : 1975 Provider: YANE Araujo Age/Sex: 49/F Location: [facility] Status: Signed Intake Vital Signs 04/11/25 08:21 BP 114/60 Blood Pressure Location Lt brachial Position Sitting Respiration 14 Pulse 69 Pulse Source NIBP Temp 98.0 F Temp Source Oral Pulse Oximetry (%) 96 Oxygen Delivery Method room air Intake Visit Reasons: CAT BITE ON L HAND Chief Complaint: cat bite Stave Cutting Supervisor Required: No Is patient in pain?: Yes Allergies Penicillins Allergy (Unknown, Verified 04/11/25 08:22) Unknown Medications ???Medication ???Instructions ???Recorded ???Confirmed ???Type ciprofloxacin HCl 500 mg tablet 500 mg PO BID 7 days #14 tabs 01/2804/11/25 Rx (Cipro) doxycycline monohydrate 100 mg 100 mg PO BID 7 days #14 caps 01/2804/11/25 Rx capsule Is last menstrual period known: No Post menopausal: No Patient : No Have you fallen in the past year?: No Nurse's Note: bitten by parents cat yesterday after cat was scared by another person. bite to left hand/wrist area. small amount of redness, no swelling, no drainage at this time. denies additional areas of concern. [facility] Social History Smoking Status: Never smoker alcohol intake: never HPI HPI Chief Complaint: cat bite Details: DOROTHY BATES, is a 49 F who presents to the office today for cat bite -was trying to put parents cat in carrier and cat got spooked and latched on to her left hand biting her several times- cat is up to date on immunizations -cleaning it and using neosporin- had cat bite in past that got infected -hand slightly swollen, painful- was oozing scant amt of blood -denies fever or chills -unsure when last TD was- thinks had one within last 5 years but unsure ROS Const Constitutional: Positive for other (ROS negative x6 except what was placed in HPI) Exam Const General: cooperative, healthy appearing, comfortable and no acute distress Orientation: alert and oriented x3 Skin Other: -left hand with several puncture wounds- topical not deep- surrounding tissue slightly swollen, no drainage, no redness or warmth - slight discomfort with palpation Psych Appearance: grossly normal Mental Status: other (normal) Mood: other (normal) Thought Process: normal Judgment: judgment good Immunizations Boostrix Tdap 2.5 Lf unit-8 mcg-5 Lf/0.5 mL intramuscular syringe Performing Provider: YANE Dalal Performing Location: [facility] Administered by: Sandra Carpenter on 04/11/25 08:40 Dose Route Admin Location Dispensed Lot Number Expiration Date ND Man ufacturer 0.5 mL IM Left Deltoid 0.5 mL [id number] 09/26/26 32028-449-72 [employer] VIS Given Date VIS Provided VIS Publication Date 04/11/25 Single Vaccine 24 Eligibility Eligibility Date Funding Source Not Applicable Coding Level of Care Code Off vis,est,level 3 Diagnoses Cat bite of left hand, initial encounter S61.452A; W55.01XA Encounter type: initial encounter Laterality: left Assessment and Plan Assessment and Plan (1) Cat bite of hand: Status: Acute Qualifiers: Encounter type: initial encounter Laterality: left Qualified Code(s): S61.452A - Open bite of left hand, initial encounter; W55.01XA - Bitten by cat, initial encounter Plan: -allergic to pcn so explained need for dual therapy -take full course of atbs even if feeling better- to prevent gi sx or yeast infection eat a yogurt daily or take an otc probiotic -keep sight clean and dry- can continue to use neosporin -if sx change or worsen to ED or call 911 -Please follow up with your Primary Care Physician for ongoing chronic problems. If symptoms change or worsen, please present to Emergency Room for further evaluation 1. See visit diagnoses, disposition, and orders. 2. Reviewed and updated medication list; Discussed probable diagnosis, test results if available in office today and management options with patient/guardian: agreed to the medical plan above 3. Education provided regarding visit today, see after visit summary. Instruction provided in the use of fluids, vaporizer, acetaminophen, and/or other OTC medication for symptom control. Explained use of antibiotics only for proven or strongly suspected bacterial infections. 4. Prevention and health maintenance with primary care provider. 5. Patient/guardian educated to proceed to ED with worsening of condition, changes, or failure to improve. Orders: Orders Tdap Immunization Today Z23 - Encounter for immunization (more content not included)... Normal [facility] DHEA Sulfateon 07-21-2024 DHEA SULFATE 52.2 ug/dL Normal 41.2-243.7 [facility] Comment on above: Order Comment: N Y Performed By: #### L 506.1000, L3100.5310, L3300.1500, L3300.1750, L801.2600, L3300.6750, L501.9520 #### [facility] [address] [place], [place], [id number] Testosterone, Total / Freeon 07-21-2024 TESTOSTER,FREE 0.07 ng/dL Abnormal 0.10-0.85 [facility] Comment on above: Order Comment: N Y Performed By: #### L 506.1000, L3100.5310, L3300.1500, L3300.1750, L801.2600, L3300.6750, L501.9520 #### [facility] [address] [place], [address] TESTOSTER,TOTAL 3 ng/dL Low 4-50 [facility] Comment on above: Order Comment: N Y Performed By: #### L 506.1000, L3100.5310, L3300.1500, L3300.1750, L801.2600, L3300.6750, L501.9520 #### [facility] [address] [place], [address] TESTOSTERONE,%F 2.29 Normal 0.50-2.80 [facility] Comment on above: Order Comment: N Y Performed By: #### L 506.1000, L3100.5310, L3300.1500, L3300.1750, L801.2600, L3300.6750, L501.9520 #### [facility] [address] [place], [address] Thyroid Antibodieson 1216-2 024 TG AB 1.6 IU/mL High 0.0-0.9 [facility] Comment on above: Order Comment: N Y Result Comment: Thyr oglobulin Antibody measured by [employer] It should be noted that the presence of thyroglobulin antibodies may not be pathogenic nor diagnostic, especially at very low levels. The assay drum sprayer has found that four percent of individuals without evidence of thyroid disease or autoimmunity will have positive TgAb levels up to 4 IU/mL. Performed at: [address] [id number] Insulation Board Coater Operator: Thien Horta PhD, Phone: [phone] Performed at: [address] [id number] Insulation Board Coater Operator: Zneobia Hyde MD, Phone: [phone] Performed By: #### L 506.1000, L3100.5310, L3300.1500, L3300.1750, L801.2600, L3300.6750, L501.9520 #### [facility] [address] [place], [address] THYR PEROX AB < 9 Normal 0-34 [facility] Comment on above: Order Comment: N Y Performed By: #### L 506.1000, L3100.5310, L3300.1500, L3300.1750, L801.2600, L3300.6750, L501.9520 #### [facility] [address] [place], [place], [id number] PROGESTERONE 4317on 07-16-20 24 PROGESTERONE 0.8 ng/mL Normal . [facility] Comment on above: Order Comment: N Result Comment: Foll icular phase 0.1 - 0.9 Luteal phase 1.8 - 23.9 Ovulation phase 0.1 - 12.0 First trimester 11.0 - 44.3 Second trimester 25.4 - 83.3 Third trimester 58.7 - 214.0 Postmenopausal 0.0 - 0.1 Performed at: [address] [id number] Insulation Board Coater Operator: Thien Horta PhD, Phone: [phone] Performed By: #### L 506.1000, L3100.5310, L3300.1500, L3300.1750, L801.2600, L3300.6750, L501.9520 #### [facility] [address] [place], [address] Estradiolon 07-14-2024 ESTRADIOL 18.6 pg/mL Normal [facility] Comment on above: Result Comment: NORM AL REFERENCE RANGES FEMALE FOLLICULAR 21.4 - 164.8 pg/mL MID-CYCLE PEAK 49.9 - 367.2 pg/mL LUTEAL 40.2 - 259.0 pg/mL POST-MENOPAUSAL ON MHT <11.0 - 462.1 pg/mL NOT ON MHT <11.0 - 58.3 pg/mL MALE <11.0 - 52.5 pg/mL NOTE: [facility] HAS CONFIRMED THE DRUG FULVETRANT (FASLODEX) MAY CAUSE FALSELY ELEVATED ESTRADIOL RESULTS WHEN USING THIS TEST METHOD. IF PATIENT IS TAKING FULVESTRANT AN ALTERNATIVE METHOD SHOULD BE USED TO DETERMINE ESTRADIOL CONCENTRATION. Performed By: #### L 506.1000, L3100.5310, L3300.1500, L3300.1750, L801.2600, L3300.6750, L501.9520 #### [facility] [address] [place], [address] Thyroid Stim Hormone (TSH)on 07-14-2024 TSH 2.260 uIU/mL Normal 0.358-3.74 0 [facility] Comment on above: Performed By: #### L 506.1000, L3100.5310, L3300.1500, L3300.1750, L801.2600, L3300.6750, L501.9520 #### [facility] [address] [place], [place], [address] Vitamin D,25 Hydroxyon 07-14 Vitamin D 25-OH 15.9 ng/mL Normal [facility] Comment on above: Result Comment: Genna min D 25(OH) Status Range Deficiency <20 ng/mL (50nmol/L) Insufficiency 20 - 30 ng/mL (50 - 75 nmol/L) Sufficiency 30 - 100 ng/mL (75 - 250 nmol/L) Toxicity >100 ng/mL (>250 nmol/L) Performed By: #### L 506.1000, L3100.5310, L3300.1500, L3300.1750, L801.2600, L3300.6750, L501.9520 #### [facility] [address] [place], [place], [address] Absolute lymphocyte countOrd ered By: Ilana Nguyễn on 09-17-2023 Lymphocytes Auto (Unsp spec) [#/Vol] 2.00 10*3/uL 0.83-4.51 [facility] Automated lymphocyte count a s percentage of total leukocytesOrdered By: Ilana Nguyễn on 09-17-2023 Lymphocytes/100 WBC Auto (Unsp spec) 21.6 % 19-41 [facility] Basophil percentageOrdered B y: Ilana Nguyễn on 09-17-2023 Basophils/100 WBC (Bld) 0.4 % 0-1 [facility] Bilirubin [Mass/Vol] 0.40 mg/dL 0.20-1.[address] [facility] Comment on above: For patients on eltr ombopag therapy, use of Dimension [place] TBIL is not recommended. Chloride [Moles/Vol] 106 mmol/L 98-[address] [facility] Eosinophils/100 WBC (Bld) 2.2 % 0-5 [facility] Glucose [Mass/Vol] 86 mg/dL 74-106 [facility] Hemoglobin (Bld) [Mass/Vol] 14.1 g/dL 12.0-15.0 [facility] Monocytes/100 WBC (Bld) 7.1 % 0-10 [facility] Neutrophils (Bld) [#/Vol] 6.3 10*3/uL 2.0-7.7 [facility] Neutrophils/100 WBC (Bld) 68.4 % 47-70 [facility] Potassium [Moles/Vol] 4.0 mmol/L 3.5-5.1 [facility] Protein [Mass/Vol] 7.4 g/dL 6.4-8.2 [facility] Sodium [Moles/Vol] 139 mmol/L 136-145 [facility] WBC (Bld) [#/Vol] 9.2 10*3/uL 4.4-11.0 [facility] Bilirubin Test strip Ql (U)O rdered By: Ilana Nguyễn on 09-17-2023 Bilirubin Ql (U) Negative Negative [facility] Determination of erythrocyte mean corpuscular volume (MCV)Ordered By: Ilana Nguyễn on 09-17-2023 MCV (RBC) [Entitic vol] 94.5 fL 81-99 [facility] Erythrocyte distribution wid th ratioOrdered By: Ilana Nguyễn on 09-17-2023 Erythrocyte distribution width (RBC) [Ratio] 13.0 % 11.6-14.6 [facility] Erythrocyte distribution wid th standard deviationOrdered By: Ilana Nguyễn on 09-17-2023 Erythrocyte distribution width (RBC) [Entitic vol] 45.2 fL 35.1-43.9 [facility] Erythrocyte sedimentation ra teOrdered By: Ilana Nguyễn on 09-17-2023 ESR (Bld) [Velocity] 11 mm/h 0-[address] [facility] Hematocrit Auto (Bld) [Volum e fraction]Ordered By: Ilana Nguyễn on 09-17-2023 Hematocrit (Bld) [Volume fraction] 44.9 % 37-47 [facility] Immature granulocytes/100 WB C Auto (Bld)Ordered By: Ilana Nguyễn on 09-17-2023 Immature granulocytes/100 WBC (Bld) 0.300 % 0.0-0.9 [facility] Comment on above: IG% - Immature Granu locytes (promyelocytes, myelocytes and metamyelocytes) > 1% indicates that a LEFT SHIFT is Present. Iron measurement (mass/mass) Ordered By: Ilana Nguyễn on 09-17-2023 Iron (Unsp spec) [Mass/Mass] 75 ug/dL 50-170 [facility] Ketones Test strip Ql (U)Ord ered By: Ilana Nguyễn on 09-17-2023 Ketones Ql (U) Negative Negative [facility] - Chemistry and C hemistry - challengeOrdered By: Ilana Nguyễn on 09-17-2023 Albumin/Globulin [Mass ratio] 1.1 {ratio} 0.9-2.4 [facility] ALP [Catalytic activity/Vol] 61 U/L 45-117 [facility] ALT [Catalytic activity/Vol] 19 U/L 13-56 [facility] CO2 [Moles/Vol] 29.0 mmol/L 21.0-32.0 [facility] Globulin (S) [Mass/Vol] 3.5 g/dL 2.2-4.2 [facility] Urea nitrogen/Creatinine [Mass ratio] 12.3 mg/mg 10-20 [facility] - Hematology and Cell countsOrdered By: Ilana Nguyễn on 09-17-2023 MCH (RBC) [Entitic mass] 29.7 pg 27.0-32.0 [facility] MCHC (RBC) [Mass/Vol] 31.4 g/dL 32-36 [facility] Nucleated RBC/100 WBC (Bld) [Ratio] 0 % 0-5 [facility] Platelet mean volume (Bld) [Entitic vol] 9.7 fL 6.2-12.0 [facility] Platelets (Bld) [#/Vol] 295 10*3/uL 150-450 [facility] Nitrite Test strip Ql (U)Ord ered By: Ilana Nguyễn on 09-17-2023 Nitrite Ql (U) Negative Negative [facility] No Panel InformationOrdered By: Ilana Nguyễn on 09-17-2023 C-Reactive Protein Extended Range < 2.90 mg/L 0.0-3.0 [facility] Comment on above: C-Reactive Protein ( CRP) provides useful information for thediagnosis, therapy and monitoring of inflammatory processesand associated diseases. For the evaluation of Relative Riskfor Cardiovascular Disease, a High Sensitivity CRP (HSCRP)should be ordered. Estimated GFR (MDRD) Amer 87 mL/min >60 [facility] Comment on above: GFR Calc Estimated GFR (MDRD) Non-Af Amer 72 mL/min >60 [facility] Comment on above: Non- GFR Calc Free Triiodothyronine (T3) pg/dL 2.6 pg/mL 2.18-3.98 [facility] Protein Test strip Ql (U)Ord ered By: Ilana Nguyễn on 09-17-2023 Protein Ql (U) Negative Negative [facility] RBC Auto (Bld) [#/Vol]Ordere d By: Ilana Nguyễn on 09-17-2023 RBC (Bld) [#/Vol] 4.75 10*6/uL 4.2-5.4 [facility] Serum or plasma calcium vanessa urement (mass/volume)Ordered By: Ilana Nguyễn on 09-17-2023 Calcium [Mass/Vol] 9.8 mg/dL 8.5-10.1 [facility] Serum or plasma creatinine m easurement (mass/volume)Ordered By: Ilana Nguyễn on 09-17-2023 Creatinine [Mass/Vol] 0.89 mg/dL 0.55-1.02 [facility] Comment on above: The validity of the calculated GFR & GFRAA in patients over 70 years has not been determined. Clinical correlation is essential. Serum or plasma thyroid stim ulating hormone (TSH) measurement (units/volume)Ordered By: Ilana Nguyễn on 09-17-2023 TSH Qn 2.54 uIU/mL 0.358-3.74 [facility] Serum or plasma urea nitroge n measurement (mass/volume)Ordered By: Ilana Nguyễn on 09-17-2023 Urea nitrogen [Mass/Vol] 11 mg/dL 7-18 [facility] Thin prep Papanicolaou smear with manual screeningOrdered By: Ilana Nguyễn on 09-17-2023 Thin prep Papanicolaou smear with manual screening 3.9 g/dL 3.2-5.0 [facility] Thin prep Papanicolaou smear with manual screening 17 U/L 15-37 [facility] Thin prep Papanicolaou smear with manual screening 4 5-15 [facility] Thin prep Papanicolaou smear with manual screening 0.95 ng/dL 0.76-1.46 [facility] Urine blood detectionOrdered By: Ilana Nguyễn on 09-17-2023 RBC Ql (U) Negative Negative [facility] Urine clarityOrdered By: Sheyla Nguyễn on 09-17-2023 Clarity (U) Clear Clear [facility] Urine color determinationOrd ered By: Ilana Nguyễn on 09-17-2023 Color (U) Yellow Yellow [facility] Urine glucose detectionOrder ed By: Ilana Nguyễn on 09-17-2023 Glucose Ql (U) Normal mg/dl Normal [facility] Urine leukocyte esterase det ection by dipstickOrdered By: Ilana Nguyễn on 09-17-2023 Leukocyte esterase Test strip Ql (U) Negative Negative [facility] Urine pHOrdered By: Ilana landrum on 09-17-2023 pH (U) 7.0 [pH] 5.0 - 8.0 [facility] Urine specific gravity measu rementOrdered By: Ilana Nguyễn on 09-17-2023 Specific gravity (U) [Rel density] 1.010 1.002-1.03 0 [facility] Urine urobilinogen measureme ntOrdered By: Ilana Nguyễn on 09-17-2023 Urobilinogen Ql (U) Normal mg/dl Normal [facility] Absolute lymphocyte counton 04-20-2022 Lymphocytes Auto (Unsp spec) [#/Vol] 1.97 10*3/uL 0.83-4.51 [facility] Work Phone: Basophil percentageon 2021 Basophils/100 WBC (Bld) 0.6 % 0-1 [facility] Work Phone: Eosinophils/100 WBC (Bld) 5.0 % 0-5 [facility] Work Phone: Neutrophils (Bld) [#/Vol] 4.7 10*3/uL 2.0-7.7 [facility] Work Phone: Neutrophils/100 WBC (Bld) 59.8 % 47-70 [facility] Work Phone: WBC (Bld) [#/Vol] 7.9 10*3/uL 4.4-11.0 [facility] Work Phone: Blood erythrocytes count (nu mber/volume)on 04-20-2022 RBC (Bld) [#/Vol] 4.65 10*6/uL 4.2-5.4 [facility] Work Phone: Blood hemoglobin measurement (mass/volume)on 04-20-2022 Hemoglobin (Bld) [Mass/Vol] 14.0 g/dL 12.0-15.0 [facility] Work Phone: Blood lymphocytes/100 leukoc yteson 04-20-2022 Lymphocytes/100 WBC (Bld) 25.1 % 19-41 [facility] Work Phone: Blood monocytes/100 leukocyt eson 04-20-2022 Monocytes/100 WBC (Bld) 9.2 % 0-10 [facility] Work Phone: Blood platelet mean volumeon 04-20-2022 Platelet mean volume (Bld) [Entitic vol] 9.2 fL 6.2-12.0 [facility] Work Phone: [phone] Determination of erythrocyte mean corpuscular volume (MCV)on 04-20-2022 MCV (RBC) [Entitic vol] 93.3 fL 81-99 [facility] Work Phone: [phone] Erythrocyte sedimentation ra keren 04-20-2022 ESR (Bld) [Velocity] 4 mm/h 0-[address] [facility] Work Phone: Hematocrit Auto (Bld) [Volum e fraction]on 04-20-2022 Hematocrit (Bld) [Volume fraction] 43.4 % 37-47 [facility] Work Phone: [phone] Laboratory - Chemistry and C hemistry - challengeon 04-20-2022 Cobalamin (Vitamin B12) [Mass/Vol] 613 pg/mL 211-911 [facility] Work Phone: Free T4 [Mass/Vol] 0.99 ng/dL 0.76-1.46 [facility] Work Phone: Laboratory - Hematology and Cell countson 04-20-2022 Erythrocyte distribution width (RBC) [Entitic vol] 44.4 fL 35.1-43.9 [facility] Work Phone: Erythrocyte distribution width (RBC) [Ratio] 12.9 % 11.6-14.6 [facility] Work Phone: Immature granulocytes/100 WBC (Bld) 0.300 % 0.0-0.9 [facility] Work Phone: Comment on above: IG% - Immature Granu locytes (promyelocytes, myelocytes and metamyelocytes) > 1% indicates that a LEFT SHIFT is Present. MCH (RBC) [Entitic mass] 30.1 pg 27.0-32.0 [facility] Work Phone: Nucleated RBC/100 WBC (Bld) [Ratio] 0 % 0-5 [facility] Work Phone: MCHC Auto (RBC) [Mass/Vol]on 04-20-2022 MCHC (RBC) [Mass/Vol] 32.3 g/dL 32-36 [facility] Work Phone: No Panel Informationon 04-20 Free Triiodothyronine (T3) pg/dL 2.7 pg/mL 2.18-3.98 [facility] Work Phone: Thyroglobulin Antibody < 1.0 IU/mL 0.0-0.9 [facility] Work Phone: Comment on above: Thyroglobulin Antibo dy measured by Reyna CoulterMethodologyPerformed at: - [facility] [id number] Director: Thien Horta PhD, Phone: [phone] Thyroid Stimulating Hormone (TSH) 2.74 uIU/mL 0.358-3.74 [facility] Work Phone: Vitamin D 25-Hydroxy 19.3 ng/mL [facility] Work Phone: Comment on above: Vitamin D 25(OH) Sta tus Range Deficiency <20 ng/mL (50nmol/L) Insufficiency 20 - 30 ng/mL (50 - 75 nmol/L) Sufficiency 30 - 100 ng/mL (75 - 250 nmol/L) Toxicity >100 ng/mL (>250 nmol/L) Platelets bldon 04-20-2022 Platelets (Bld) [#/Vol] 203 10*3/uL 150-450 [facility] Work Phone: Serum or plasma C reactive p rotein measurement (mass/volume)on 04-20-2022 CRP [Mass/Vol] mg/L 0.0-3.0 [facility] Work Phone: Comment on above: C-Reactive Protein ( CRP) provides useful information for thediagnosis, therapy and monitoring of inflammatory processesand associated diseases. For the evaluation of Relative Riskfor Cardiovascular Disease, a High Sensitivity CRP (HSCRP)should be ordered. Serum or plasma thyroperoxid ase antibody assay (units/volume)on 04-20-2022 TPO Ab Qn 13 [IU]/mL 0-34 [facility] Work Phone: Vital Signs Date Time Vital Sign Value Performing Clinician Sylvesteri keven 04-11-2025 08:21-0400 Body temperature 98 [degF] Dr. Ilana Nguyễn DO Work Phone: [facility] 04-11-2025 08:21-0400 Diastolic blood pressure 60 mm[Hg] Dr. Ilana Nguyễn DO Work Phone: [facility] 04-11-2025 08:21-0400 Heart rate 69 /min Dr. Ilana gNuyễn DO Work Phone: [facility] 04-11-2025 08:21-0400 Respiratory rate 14 /min Dr. Ilana Nguyễn DO Work Phone: [facility] 04-11-2025 08:21-0400 SaO2% (BldA) [Mass fraction] 96 % Dr. Ilana Nguyễn DO Work Phone: [facility] 04-11-2025 08:21-0400 Systolic blood pressure 114 mm[Hg] Dr. Ilana Nguyễn DO Work Phone: [facility] Encounters Encounter Date Encounter Type Care Provider Facility Start: 04-11-2025 End: 04-11-2025 Patient encounter procedure Zeina Sheren SET UP AND CHARGER[facility] Work Phone: Start: 04-11-2025 End: 04-11-[address] Ilana Nguyễn DO Work Phone: [facility] Start: 07-14-2024 End: 07-14-2024 ambulatory Ilana Nguyễn Facility:[facility] Start: 10-01-2023 End: 10-01-2023 ambulatory [facility] Work Phone: Start: 10-01-2023 End: 10-01-2023 Patient encounter procedure [facility] Work Phone: Start: 09-17-2023 End: 09-17-2023 ambulatory [facility] Work Phone: Start: 09-17-2023 End: 09-17-2023 [facility] Start: 04-20-2022 End: 04-20-2022 ambulatory [facility] Work Phone: Start: 04-20-2022 End: 04-20-2022 Patient encounter procedure [facility] Procedures Date Procedure Procedure Detail Performing Clinician Start: 10-01-2023 Screening mammography Payers Date Payer Category Payer Self-pay [id number] 2024 Unknown [id number] Self-pay [id number] Unknown [id number] Unknown [id number] Social History Date Type Detail Facility Start: 07-27-2020 End: 09-17-2022 Tobacco smoking status NHIS Unknown if ever smoked [facility] Start: 1975 Sex Assigned At Female W [facility] Start: 09-17-2022 Tobacco smoking stat us NHIS Never smoked tobacco (finding) [facility] Clinical Note 02-25-2021 Note Date & Type Note Facility 02-25-2021 Note Patient Outreach (IN [facility]) DOROTHY BATES ([id number]) 1975 F Date Time Provider Department 02/25/21 MARCY ESTES During your visit today, we recorded the following information about you: Allergies As of Date: 02/25/2021 Noted Allergy Reaction AUGMENTIN (AMOXICILLIN-POT CLAVUL*09/01/2005 Comments: hives and facial swelling Date Reviewed: 10/29/2015 Reviewed by: Jacob Calero LPN - Fully Assessed Visit Diagnosis:Encounter for screening mammogram for breast cancer [Z12.31] Order(s):PAYTON SCREENING [[id number]] Order #: [id number] FUTURE Prescriptions as of 02/28/2021 - atenolol (TENORMIN) 25 mg tablet Take 1 tablet by mouth once daily as needed. - terbinafine HCl (LAMISIL) 250 mg tablet Take 1 tablet by mouth once daily. Problem List As Of Date: 02/25/2021 (None) Encounter Status:Closed by MAKI VELAZQUEZ on 02/28/21 [facility] Evaluation note Note Date & Type Note Facility Evaluation note No assessment information availa ble [facility] Work Phone: Reason for referral (narrative) Note Date & Type Note Facility Reason for referral (narrative) No reason for referral information available [facility] Work Phone: Summary Purpose Family History No Family History Records FoundNo Family History Records Found Advance Directives No Advanced Directives Records FoundNo Advanced Directives Records Found Chief Complaint and Reason for Visit Chief Complaint SCREENING Chief Complaint Admit Date CAT BITE ON L HAND April 11, 2025 8:13am Additional Source Comments INFORMATION SOURCE (unrecogn ized section and content) DATE CREATED AUTHOR 08/29/2021 [facility] DATE CREATED AUTHOR AUTHOR'S ORGANIZ ATION 04/13/2025 [facility] Goals (unrecognized section and content) Goals may be documented in a n alternate sectionGoals may be documented in an alternate sectionGoals may be documented in an alternate sectionGoals may be documented in an alternate section Care Teams (unrecognized sec tion and content) Team Status: Active Member Role Status Dates Dr. Ilana Nguyễn DO Family Provider Active Dr. Ilana Nguyễn DO Primary Care Provider Active Team Status: Inactive Member Role Status Dates Dr. Ilana Nguyễn DO Primary Care Provider, Attending Justina guzman Active Team Status: Inactive Member Role Status Dates Dr. Ilana Nguyễn DO Primary Care Provide r, Attending Provider, Referring Provider Active Team Status: Active Member Role/Relationship Status Dates Dr. Ilana Nguyễn DO Family Provider Active Dr. Ilana Nguyễn DO Primary Care Provider Active Team Status: Inactive Member Role/Relationship Status Dates Dr. Ilana Nguyễn DO Primary Care Provider Active Start: April 11, 2025 End: April 11, 2025 Dr. Ilana Nguyễn DO Referring Provider Active St art: April 11, 2025 End: April 11, 2025 YANE Dalal Attending Provider Active Start: April 11, 2025 End: April 11, 2025 FOR RECORDS PERTAINING TO PATIENTS WHO ARE [...] BE BASED ON THE PRIMARY CLINICAL RECORDS. [facility]. provides no warranty or guarantee of the accuracy or completeness of information in this document.
[2025-05-01 10:23] LABS: Hematocrit 44.9 % (37-47); Hemoglobin 14.8 g/dL (12.0-15.0); Immature Granulocytes Count 0.020 X10^3/uL (0.0-0.0); Mean Corp Hgb Conc 33.0 g/dL (32-36); Mean Corpuscular Volume 93.9 fL (81-99); Mean Platelet Vol. 9.5 fl (6.2-12.0); NRBC Flagged by Analyzer 0 % (0-5); Platelet Count 257 K/mm3 (150-450); RBC Distribution Width CV 13.0 % (11.6-14.6); RBC Distribution Width SD 44.8 fl (35.1-43.9); Red Blood Count 4.78 M/mm3 (4.2-5.4); White Blood Count 7.3 K/mm3 (4.4-11.0)
[2025-05-01 10:47] LABS: AST(SGOT) 23 U/L (<=31); Alanine Aminotransfer ALT/SGPT 13 U/L (<=34); Albumin, Serum 4.4 g/dL (3.5-5.0); Alkaline Phosphatase 61 U/L (35-104); Anion Gap 11 (5-15); BUN 14 mg/dL (4-19); BUN/Creat Ratio 16.0 RATIO (10-20); Calcium,Total 9.9 mg/dL (7.6-11.0); Carbon Dioxide 25.7 mmol/L (21.0-32.0); Chloride 103 mmol/L (98-108); Cholesterol 140 mg/dL (<=200); Free T3 3.1 pg/mL (2.18-3.98); Globulin 0.9 g/dL (2.2-4.2); Glucose 76 mg/dL (70-99); Low Density Lipoprotein Calc. 70 mg/dL; Potassium 4.0 mmol/L (3.3-5.1); Triglycerides 167 mg/dL; Very Low Density Lipoprotein 33 mg/dL (5-40); cholesterol:hdl ratio screen 3.86
[2025-05-02 08:09] LABS: PROGESTERONE 0.1 ng/mL (.)
[2025-05-06 12:08] LABS: Testosterone, % Free 1.46 % (0.50-2.80); Testosterone, Free <.04 ng/dL (0.10-0.85)
== END | disposition home or self-care (01) ==
LOC: MTLAB 08:25
PROVIDERS: PCP Family Medicine; Referring Provider Family Medicine; Visit Provider Family Medicine
DX: E03.9 Hypothyroidism, unspecified (principal); N95.9 Unspecified menopausal and perimenopausal disorder; E78.5 Hyperlipidemia, unspecified; Z51.81 Encounter for therapeutic drug level monitoring
CPT/HCPCS: 36415; 80053; 80061; 82670; 84144; 84402; 84403; 84439; 84443; 84481; 85025; 86376; 86800